=== PATIENT | female | born 1970 | race Caucasian/White ===

== ENCOUNTER 2022-07-27 09:29 | Day surgery (SDC) | payer OTHER ==
[2022-07-27] MEDS ORDERED: Sodium Chloride 0.9(Preservative Free) 10 ML IJ ONE (09:30)
[2022-07-27] MEDS ORDERED: Depo-Medrol 40 MG/ML IM ONE (09:30)
[2022-07-27] MEDS ORDERED: Reglan 10 MG/2 ML ONE (10:15)
[2022-07-27] MEDS ORDERED: Zofran 4 MG/2 ML VIAL ONE (10:15)
[2022-07-27] MEDS ORDERED: Pepcid 20 MG VIAL IV ONE (10:15)
[2022-07-27] MEDS ORDERED: DIPRIVAN 200 MG/20 ML IV ONE (11:24)
--- NOTE | 2022-07-27 12:49 | XRAY ---
46 seconds fluoroscopy time in surgery for left L4-S1 transforaminal SOUMYA.
--- NOTE | 2022-07-27 12:49 | XRAY ---
Indication: Left L4-S1 transforaminal SOUMYA. Intraoperative fluoroscopy provided for 46 seconds. 4 digital spot image submitted for interpretation demonstrates posterior needle tips projecting over the expected left L4 and L5 nerve roots. Small amount of contrast injected for needle tip placement. Correlate with intraoperative findings/report. Incidental incompletely visualized epidural stimulator leads/tubing.
[2022-07-27] MEDS ORDERED: Lactated Ringers 1,000 ML IV ONE (13:02)
== END 2022-07-27 11:55 | disposition home or self-care (01) ==
LOC: SDC-PAIN 09:29
PROVIDERS: ATTEND Psychiatry & Neurology Pain Medicine
DX: M54.16 Radiculopathy, lumbar region (principal); Z79.899 Other long term (current) drug therapy
CPT/HCPCS: 64483; 64484; 72100; 77003; 82947; J1030; J1642; J2405; J2704; Q9966

== ENCOUNTER 2023-04-26 06:57 | Day surgery (SDC) | payer OTHER ==
[2023-04-26] MEDS ORDERED: LIDOCAINE HCL 2% 100 MG/5 ML IJ ONE (06:58)
[2023-04-26] MEDS ORDERED: DIPRIVAN 200 MG/20 ML IV ONE (08:46)
[2023-04-26] MEDS ORDERED: Versed 2 MG/2 ML Injection ONE (08:47)
[2023-04-26] MEDS ORDERED: Lactated Ringers 1,000 ML IV ONE (09:11)
--- NOTE | 2023-04-26 09:57 | XRAY ---
Indication: Left C2-C4 MBB Intraoperative fluoroscopy was provided for 15 seconds. 2 digital spot images submitted for interpretation demonstrates posterior needle tips projecting over expected left C2-C4 nerve roots. Correlate with intraoperative findings/report. Incidental epidural lead terminates C3-C4 level.
--- NOTE | 2023-04-26 09:59 | XRAY ---
15 seconds of fluoroscopy was used in surgery for a left C2-C4 MBB.
== END 2023-04-26 09:13 | disposition home or self-care (01) ==
LOC: SDC-PAIN 06:57
PROVIDERS: ATTEND Psychiatry & Neurology Pain Medicine
DX: M47.812 Spondylosis without myelopathy or radiculopathy, cervical region (principal); E11.9 Type 2 diabetes mellitus without complications
CPT/HCPCS: 64490; 64491; 72040; 77002; 82947; J1642; J2250; J2704

== ENCOUNTER 2023-05-31 06:18 | Day surgery (SDC) | payer OTHER ==
[2023-05-31] MEDS ORDERED: BUPIVACAINE 0.5% VIAL IJ ONE (06:19)
[2023-05-31] MEDS ORDERED: DIPRIVAN 200 MG/20 ML IV ONE (08:28)
--- NOTE | 2023-05-31 13:54 | XRAY ---
16 seconds of fluoroscopy was used in surgery for a left C2-C4 MBB.
--- NOTE | 2023-05-31 13:54 | XRAY ---
Indication: Left C2-C4 MBB. Intraoperative fluoroscopy provided for 16 seconds. 2 digital spot images submitted for interpretation demonstrates posterior needle tips projecting over the expected left C2-C4 nerve roots. Correlate with intraoperative findings/report. Incidental epidural lead terminating C3-C4 and lower cervical fusion hardware.
[2023-05-31] MEDS ORDERED: Lactated Ringers 1,000 ML IV ONE (14:57)
== END 2023-05-31 08:55 | disposition home or self-care (01) ==
LOC: SDC-PAIN 06:18
PROVIDERS: ATTEND Psychiatry & Neurology Pain Medicine
DX: M47.812 Spondylosis without myelopathy or radiculopathy, cervical region (principal); E11.9 Type 2 diabetes mellitus without complications; Z79.899 Other long term (current) drug therapy
CPT/HCPCS: 64490; 64491; 72040; 77002; 82947; J1642; J2704

== ENCOUNTER 2023-07-13 06:25 | Day surgery (SDC) | payer OTHER ==
[2023-07-13] MEDS ORDERED: LIDOCAINE HCL 2% 100 MG/5 ML IJ ONE (06:26)
[2023-07-13] MEDS ORDERED: DIPRIVAN 200 MG/20 ML IV ONE (08:38)
--- NOTE | 2023-07-13 10:37 | XRAY ---
Indication: Right C2-C4 MBB. Intraoperative fluoroscopy provided for 18 seconds. 3 digital spot images submitted for interpretation demonstrate posterior needle tips projecting over expected right C2-C4 nerve roots. Correlate with intraoperative findings/report. Incidental epidural lead terminating mid cervical level and also incidental lower cervical fusion hardware.
[2023-07-13] MEDS ORDERED: Lactated Ringers 1,000 ML IV ONE (12:03)
--- NOTE | 2023-07-14 10:57 | XRAY ---
18 seconds of fluoroscopy was used in surgery for a right C2-C4 MBB.
== END 2023-07-13 09:11 | disposition home or self-care (01) ==
LOC: SDC-PAIN 06:25
PROVIDERS: ATTEND Psychiatry & Neurology Pain Medicine
DX: M47.812 Spondylosis without myelopathy or radiculopathy, cervical region (principal); E11.9 Type 2 diabetes mellitus without complications
CPT/HCPCS: 64490; 64491; 72040; 77002; 82947; J1642; J2704

== ENCOUNTER 2023-08-16 07:16 | Day surgery (SDC) | payer OTHER ==
[2023-08-16] MEDS ORDERED: XYLOCAINE-MPF 1% 5ML SDV IJ ONE (07:17)
[2023-08-16] MEDS ORDERED: Decadron 4 MG INJ IV ONE (07:17)
[2023-08-16] MEDS ORDERED: Sodium Chloride 0.9(Preservative Free) 10 ML IJ ONE (07:17)
[2023-08-16] MEDS ORDERED: DIPRIVAN 200 MG/20 ML IV ONE ×2 (10:31→10:43)
[2023-08-16] MEDS ORDERED: Lactated Ringers 1,000 ML IV ONE (10:43)
[2023-08-16] MEDS ORDERED: Hydromorphone 1 mg/ml Injection ONE (10:55)
--- NOTE | 2023-08-16 12:29 | XRAY ---
Indication: Left L4-S1 transforaminal SOUMYA. Intraoperative fluoroscopy provided for 1 minute 3 seconds. 5 digital spot images submitted for interpretation demonstrates posterior needle tips projecting over the expected left L4 and L5 nerve roots. Small amount of contrast injected for needle tip placement. Correlate with intraoperative findings/report. Incidental incompletely visualized epidural stimulator leads.
--- NOTE | 2023-08-16 12:30 | XRAY ---
Indication: Left piriformis injection. Intraoperative fluoroscopy provided for 8 seconds. Single digital spot images submitted for interpretation demonstrates posterior needle tip projecting over the expected left piriformis. Small amount of contrast injected for needle tip placement. Correlate with intraoperative findings/report. Incidental incompletely visualized left hip arthroplasty.
--- NOTE | 2023-08-16 12:32 | XRAY ---
8 seconds of fluoroscopy was used in surgery for a left piriformis injection.
--- NOTE | 2023-08-16 12:32 | XRAY ---
One minute and 3 seconds of fluoroscopy was used in surgery for a left L4-S1 transforaminal SOUMYA.
== END 2023-08-16 11:22 | disposition home or self-care (01) ==
LOC: SDC-PAIN 07:16
PROVIDERS: ATTEND Psychiatry & Neurology Pain Medicine
DX: M54.16 Radiculopathy, lumbar region (principal); M79.18 Myalgia, other site; E11.9 Type 2 diabetes mellitus without complications
CPT/HCPCS: 20552; 64483; 64484; 72100; 72170; 77002; 77003; 82947; J1100; J1170; J1642; J2704; Q9966

== ENCOUNTER 2023-09-20 06:44 | Day surgery (SDC) | payer OTHER ==
[2023-09-20] MEDS ORDERED: BUPIVACAINE 0.5% VIAL IJ ONE (06:45)
[2023-09-20] MEDS ORDERED: DIPRIVAN 200 MG/20 ML IV ONE (09:11)
[2023-09-20] MEDS ORDERED: Zofran 4 MG/2 ML VIAL ONE (09:17)
--- NOTE | 2023-09-20 10:25 | XRAY ---
Indication: Right C2-C4 MBB. Intraoperative fluoroscopy was provided for 31 seconds. 3 digital spot image submitted for interpretation demonstrates posterior needle tips projecting over the expected right C2-C4 nerve roots. Correlate with intraoperative findings/report. Incidental epidural lead terminating mid cervical level.
--- NOTE | 2023-09-20 10:48 | XRAY ---
31 seconds of fluoroscopy was used in surgery for a right C2-C4 MBB.
[2023-09-20] MEDS ORDERED: Lactated Ringers 1,000 ML IV ONE (13:35)
== END 2023-09-20 09:45 | disposition home or self-care (01) ==
LOC: SDC-PAIN 06:44
PROVIDERS: ATTEND Psychiatry & Neurology Pain Medicine
DX: M47.812 Spondylosis without myelopathy or radiculopathy, cervical region (principal); E11.9 Type 2 diabetes mellitus without complications
CPT/HCPCS: 64490; 64491; 72040; 77002; 82947; J1642; J2405; J2704

== ENCOUNTER 2023-10-11 07:22 | Day surgery (SDC) | payer OTHER ==
[2023-10-11] MEDS ORDERED: XYLOCAINE-MPF 1% 5ML SDV IJ ONE (07:23)
[2023-10-11] MEDS ORDERED: Decadron 4 MG INJ IV ONE (07:23)
[2023-10-11] MEDS ORDERED: BUPIVACAINE 0.5% VIAL IJ ONE (07:23)
[2023-10-11] MEDS ORDERED: DIPRIVAN 200 MG/20 ML IV ONE (08:55)
[2023-10-11] MEDS ORDERED: BENADRYL 50 MG/ML ONE (08:56)
--- NOTE | 2023-10-11 10:43 | XRAY ---
Indication: Left C2-C4 RFA. Intraoperative fluoroscopy provided for 26 seconds. 4 digital spot image submitted for interpretation demonstrates posterior needle tips projecting over the expected left C2-C4 nerve roots. Correlate with intraoperative findings/report. Incidental epidural lead terminating mid cervical spine and lower cervical fusion hardware.
--- NOTE | 2023-10-11 10:54 | XRAY ---
26 seconds of fluoroscopy was used in surgery for a left C2-C4 RFA.
[2023-10-11] MEDS ORDERED: Lactated Ringers 1,000 ML IV ONE (11:50)
== END 2023-10-11 09:33 | disposition home or self-care (01) ==
LOC: SDC-PAIN 07:22
PROVIDERS: ATTEND Psychiatry & Neurology Pain Medicine
DX: M47.812 Spondylosis without myelopathy or radiculopathy, cervical region (principal); E11.9 Type 2 diabetes mellitus without complications
CPT/HCPCS: 64633; 64634; 72040; 77002; 82947; J1100; J1200; J1642; J2704

== ENCOUNTER 2023-10-18 07:36 | Day surgery (SDC) | payer OTHER ==
[2023-10-18] MEDS ORDERED: BUPIVACAINE 0.5% VIAL IJ ONE (07:37)
[2023-10-18] MEDS ORDERED: Decadron 4 MG INJ IV ONE (07:37)
[2023-10-18] MEDS ORDERED: LIDOCAINE HCL 1% 50 MG/5 ML VL PF IJ ONE (07:37)
[2023-10-18] MEDS ORDERED: BENADRYL 50 MG/ML ONE (08:53)
[2023-10-18] MEDS ORDERED: DIPRIVAN 200 MG/20 ML IV ONE (09:27)
[2023-10-18] MEDS ORDERED: Lactated Ringers 1,000 ML IV ONE (09:57)
--- NOTE | 2023-10-18 10:22 | XRAY ---
Indication: Right C2-C4 RFA. Intraoperative fluoroscopy provided for 27 seconds. 2 digital spot image submitted for interpretation demonstrates posterior needle tips projecting over expected right C2-C4 nerve roots. Correlate with intraoperative findings/report. Incidental epidural lead terminating mid cervical spine and lower cervical fusion hardware.
--- NOTE | 2023-10-18 10:39 | XRAY ---
27 seconds of fluoroscopy was used in surgery for a right C2-C4 RFA.
== END 2023-10-18 10:11 | disposition home or self-care (01) ==
LOC: SDC-PAIN 07:36
PROVIDERS: ATTEND Psychiatry & Neurology Pain Medicine
DX: M47.812 Spondylosis without myelopathy or radiculopathy, cervical region (principal); E11.9 Type 2 diabetes mellitus without complications
CPT/HCPCS: 64633; 64634; 72040; 77002; 82947; J1100; J1200; J1642; J2001; J2704